=== PATIENT | female | born 1960 | race Caucasian/White ===

== ENCOUNTER → 2016-12-27 | Outpatient (CLI) | payer MEDICAID | END | disposition home or self-care (01) | LOC: RAD 15:31 | PROVIDERS: ATTEND Family Medicine | DX: M51.36 Other intervertebral disc degeneration, lumbar region (principal) | CPT/HCPCS: 72110 ==

== ENCOUNTER 2017-06-09 12:08 | Emergency (ER) | payer MEDICAID ==
[~2017-06-09] VITALS: Ht 167.6 cm; Wt 88.9 kg
[2017-06-09 13:28] LABS: PATH.CAST-FLAG NOT PRESENT; SPERM-FLAG NOT PRESENT; SRC-FLAG NOT PRESENT; XTAL-FLAG NOT PRESENT; YLC-FLAG NOT PRESENT
[2017-06-09 14:53] VITALS: BP 137/83
== END 2017-06-09 16:05 | disposition home or self-care (01) ==
LOC: ED 13:34
DX: N30.90 Cystitis, unspecified without hematuria (principal); A59.01 Trichomonal vulvovaginitis; I10 Essential (primary) hypertension; Z90.710 Acquired absence of both cervix and uterus; Z90.49 Acquired absence of other specified parts of digestive tract
CPT/HCPCS: 81001; 87086; 87210; 87491; 87591; 87808; 99284

== ENCOUNTER 2017-11-14 16:00 | Emergency (ER) | payer MEDICAID ==
[~2017-11-14] VITALS: Ht 167.6 cm; Wt 94.0 kg
[2017-11-14 16:11] VITALS: BP 135/82
== END 2017-11-14 18:24 | disposition home or self-care (01) ==
LOC: ED 18:18
DX: L20.84 Intrinsic (allergic) eczema (principal); I10 Essential (primary) hypertension
CPT/HCPCS: 99283

== ENCOUNTER 2017-12-06 10:12 | Emergency (ER) | payer MEDICAID ==
[2017-12-06 10:13] VITALS: BP 181/90
[2017-12-06] MEDS ORDERED: IBUPROFEN 200 MG TABLET PO ONE (10:30)
[2017-12-06] MEDS ORDERED: DIPH,PERTUSS(ACELL),TET VAC/PF 0.5 ML IM-VACC ONE ×2 (10:30→10:46)
[2017-12-06] MEDS ORDERED: LIDOCAINE-MPF 1%, 5ML INFIL ONE (10:30)
[2017-12-06] MEDS ORDERED: IBUPROFEN 200 MG TABLET ONE (10:46)
[2017-12-06] MEDS ORDERED: PLEASE ENTER HEIGHT AND WEIGHT MC SCH (11:00)
[2017-12-06] MEDS ORDERED: BACITRACIN ZINC OINT 500U/GM, 0.9 GM ONE (11:51)
== END 2017-12-06 12:00 | disposition home or self-care (01) ==
LOC: ED 11:45
DX: L03.012 Cellulitis of left finger (principal); S46.912A Strain of unspecified muscle, fascia and tendon at shoulder and upper arm level, left arm, initial encounter; I10 Essential (primary) hypertension; Z90.49 Acquired absence of other specified parts of digestive tract; F17.200 Nicotine dependence, unspecified, uncomplicated; F32.9 Major depressive disorder, single episode, unspecified; W18.30XA Fall on same level, unspecified, initial encounter; Y93.89 Activity, other specified; Y99.8 Other external cause status; Y92.89 Other specified places as the place of occurrence of the external cause
CPT/HCPCS: 10060; 90471; 90715

== ENCOUNTER 2018-04-24 15:56 | Emergency (ER) | payer MEDICAID ==
[~2018-04-24] VITALS: Ht 167.6 cm; Wt 94.5 kg
[2018-04-24 15:59] VITALS: BP 163/92
[2018-04-24 17:03] LABS: CULTURE INDICATED? YES; MICROSCOPIC INDICATED
[2018-04-24] MEDS ORDERED: CEFTRIAXONE 1,000 MG IM ONE (18:00)
[2018-04-24] MEDS ORDERED: CEFTRIAXONE 1,000 MG ONE (18:03)
== END 2018-04-24 18:10 | disposition home or self-care (01) ==
LOC: ED 18:04
DX: N30.01 Acute cystitis with hematuria (principal); Z90.49 Acquired absence of other specified parts of digestive tract; F32.9 Major depressive disorder, single episode, unspecified
CPT/HCPCS: 81001; 87077; 87086; 87186; 96372; 99284; J0696

== ENCOUNTER 2019-01-07 09:17 | Emergency (ER) | payer MEDICAID ==
[~2019-01-07] VITALS: Ht 167.6 cm; Wt 99.8 kg
[2019-01-07 09:21] VITALS: BP 161/94
--- NOTE | 2019-01-07 09:28 | NUR ---
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
--- NOTE | 2019-01-07 09:52 | NUR ---
report from nael dey. pt resting in room. no needs expressed. awaiting xr.
--- NOTE | 2019-01-07 10:19 | NUR ---
xr back at this time. ice pack provided. chart up for recheck.
== END 2019-01-07 11:12 | disposition home or self-care (01) ==
LOC: ED 09:47
DX: S92.515A Nondisplaced fracture of proximal phalanx of left lesser toe(s), initial encounter for closed fracture (principal); I10 Essential (primary) hypertension; F32.9 Major depressive disorder, single episode, unspecified; Z90.710 Acquired absence of both cervix and uterus; Z90.49 Acquired absence of other specified parts of digestive tract; X58.XXXA Exposure to other specified factors, initial encounter; Y93.89 Activity, other specified; Y92.009 Unspecified place in unspecified non-institutional (private) residence as the place of occurrence of the external cause; Y99.8 Other external cause status
CPT/HCPCS: 99283

== ENCOUNTER 2019-12-23 12:54 | Emergency (ER) | payer MEDICAID ==
[~2019-12-23] VITALS: Ht 167.6 cm; Wt 89.4 kg
[2019-12-23] MEDS ORDERED: BENZONATATE 100 MG CAPSULE PO ONE (15:00)
[2019-12-23] MEDS ORDERED: BENZONATATE 100 MG CAPSULE ONE (15:28)
[2019-12-23] MEDS ORDERED: KETOROLAC 30 MG/1 ML ONE (15:43)
[2019-12-23] MEDS ORDERED: KETOROLAC 30 MG/1 ML IM ONE ×2 (16:00)
[2019-12-23 16:15] VITALS: BP 142/87
== END 2019-12-23 16:17 | disposition home or self-care (01) ==
LOC: ED 14:04
DX: R05 Cough (principal); R09.3 Abnormal sputum
CPT/HCPCS: 71045; 96372; 99283; J1885